=== PATIENT | male | born 1960 | race African-American/Black ===

== ENCOUNTER 2018-05-11 10:22 | Emergency (ER) | payer BC ==
[~2018-05-11] VITALS: Ht 175.3 cm; Wt 113.4 kg
[~2018-05-11 10:22] MED LIST: ALLOPURINOL 10100 M1; NOHOMEMEDICATIONS; OXYCODON-ACETA1 EAC1; PERCOCET 5-3251 EACH PO; TAMSULOSIN HCL0.4 MG PO; ZOFRAN 4 MG ORAL4 M1 DIS
[2018-05-11 12:16] VITALS: BP 132/74
== END 2018-05-11 12:43 | disposition home or self-care (01) ==
LOC: ER 10:22
DX: H90.42 Sensorineural hearing loss, unilateral, left ear, with unrestricted hearing on the contralateral side (principal); H90.41 Sensorineural hearing loss, unilateral, right ear, with unrestricted hearing on the contralateral side; M10.9 Gout, unspecified